=== PATIENT | male | born 1955 | race Caucasian/White ===

== ENCOUNTER 2016-09-27 10:46 | Emergency (ER) | payer MEDICAID ==
[~2016-09-27] VITALS: Ht 177.8 cm; Wt 132.8 kg
[~2016-09-27 10:46] MED LIST: AMLO5TAB2 PO; APIX2.5T PO; APIX5TAB PO; CHOL100015 PO; CHOL4PAC2 PO; DOCU-30 PO; ENOX40SY4 SQ; FOLI-17 PO; FURO-92 PO; GABA600T2 PO; LEVO125T PO; LEVO200T PO; LEVO300T2 PO; LISI-170 PO; LISI1TAB5 PO; OMEP20TA62 PO; ONDA4TAB10 PO; OXYC-229 PO; OXYC5TAB3 PO; POTA25TA4 PO; POTA2IV.2 PO; RIVA15TA PO; SENN1TAB7 PO; WARF10TA PO; [UNRECOGNIZED DRUG - CODE] PO; [UNRECOGNIZED DRUG - CODE] SQ
[2016-09-27] MEDS ORDERED: SODIUM CHLORIDE FLUSH 10ML SYR IVF ONE (11:30)
[2016-09-27 12:00] LABS: HEMOGLOBIN 11.6 g/dL (13.7-18.0)
[2016-09-27] MEDS ORDERED: morphine SULFATE 10 MG/ML, 1ML IVPush ONE (12:00)
[2016-09-27 12:10] LABS: BLOOD UREA NITROGEN 23 mg/dL (7-18)
[2016-09-27 12:15] LABS: ASPARTATE AMINO TRANSFERASE 11 U/L (15-37)
[2016-09-27 12:20] LABS: IS PT STATUS REG ER OR PRE ER? YES
[2016-09-27] MEDS ORDERED: MORPHINE SULFATE 4 MG/ML, 1ML ONE (13:10)
[2016-09-27] MEDS ORDERED: OMNIPAQUE 350 MG/ML, 100ML BOTTLE ONE (14:23)
[2016-09-27 14:26] VITALS: BP 116/90
== END 2016-09-27 15:44 | disposition home or self-care (01) ==
LOC: ED 12:56
DX: G89.29 Other chronic pain (principal); R10.84 Generalized abdominal pain; R55 Syncope and collapse; I82.5Z2 Chronic embolism and thrombosis of unspecified deep veins of left distal lower extremity; Z79.01 Long term (current) use of anticoagulants
CPT/HCPCS: 36415; 71010; 71275; 80053; 83880; 84484; 85025; 85610; 85730; 93005; 93971; 96374; 99285; J2270; Q9967

== ENCOUNTER 2016-11-28 15:53 | Emergency (ER) | payer MEDICAID, OTHER ==
[~2016-11-28] VITALS: Ht 177.8 cm; Wt 131.7 kg
[2016-11-28 17:31] LABS: BLOOD UREA NITROGEN 26 mg/dL (7-18)
[2016-11-28 21:20] VITALS: BP 117/78
== END 2016-11-28 21:21 | disposition home or self-care (01) ==
LOC: ED 21:15
DX: R60.0 Localized edema (principal); I10 Essential (primary) hypertension; E03.9 Hypothyroidism, unspecified; K50.90 Crohn's disease, unspecified, without complications; Z90.49 Acquired absence of other specified parts of digestive tract
CPT/HCPCS: 36415; 80048; 82040; 85025; 85610; 85730; 99285

== ENCOUNTER 2017-09-09 08:38 | Emergency (ER) | payer MEDICAID ==
[~2017-09-09] VITALS: Ht 177.8 cm; Wt 138.7 kg
[~2017-09-09 08:38] MED LIST changes: +DOCU-131 PO; -DOCU-30 PO; -OXYC-229 PO; +OXYC-307 PO; +WARF10TA6 PO; +WARF7.5T6 PO
[2017-09-09] MEDS ORDERED: ACETAMINOPHEN 325 MG TABLET ONE (10:19)
[2017-09-09] MEDS ORDERED: ALBUTEROL/IPRATROPIUM 2.5MG/0.5MG, 3 ML ONE (10:23)
[2017-09-09] MEDS ORDERED: ACETAMINOPHEN 325 MG TABLET PO ONE (10:30)
[2017-09-09] MEDS ORDERED: ALBUTEROL/IPRATROPIUM 2.5MG/0.5MG, 3 ML NPPB ONE (10:30)
[2017-09-09 10:33] LABS: BASOPHILS # (AUTO) 0.04 x10^3/uL (0-0.1); BASOPHILS % (AUTO) 1 % (0-1); EOSINOPHILS # (AUTO) 0.11 x10^3/uL (0-0.4); EOSINOPHILS % (AUTO) 1 % (1-7); LYMPHOCYTES # (AUTO) 1.42 x10^3/uL (1-3.4); LYMPHOCYTES % (AUTO) 17 % (22-44); MD NO; MEAN CORPUSCULAR HEMOGLOBIN 28.3 pg (27.5-34.5); MEAN CORPUSCULAR HGB CONC 32.7 g/dL (33.2-36.2); MEAN CORPUSCULAR VOLUME 86.5 fL (81-97); MEAN PLATELET VOLUME 8.7 fL (7.4-10.4); MONOCYTES % (AUTO) 10 % (2-9); NEUTROPHILS # (AUTO) 6.06 x10^3/uL (1.8-6.8); NEUTROPHILS % (AUTO) 72 % (42-75); PLATELET COUNT 185 x10^3/uL (130-400); RED CELL DISTRIBUTION WIDTH 15.8 % (9.4-14.8)
[2017-09-09 10:36] LABS: ALBUMIN 3.6 g/dL (3.4-5.0); ANION GAP 8 mmol/L (5-15); CALCIUM 8.3 mg/dL (8.5-10.1); CHLORIDE 109 mmol/L (98-107); CREATININE 1.55 mg/dL (0.7-1.3)
[2017-09-09 10:40] LABS: TROPONIN I < 0.015 ng/mL (0.000-0.045)
[2017-09-09 12:01] VITALS: BP 134/75
== END 2017-09-09 12:03 | disposition home or self-care (01) ==
LOC: ED 10:27
DX: J44.9 Chronic obstructive pulmonary disease, unspecified (principal); R07.2 Precordial pain; I83.223 Varicose veins of left lower extremity with both ulcer of ankle and inflammation; L97.321 Non-pressure chronic ulcer of left ankle limited to breakdown of skin; Z90.49 Acquired absence of other specified parts of digestive tract; E03.9 Hypothyroidism, unspecified; I10 Essential (primary) hypertension; I82.5Z2 Chronic embolism and thrombosis of unspecified deep veins of left distal lower extremity; Z79.01 Long term (current) use of anticoagulants; K21.9 Gastro-esophageal reflux disease without esophagitis; Z86.73 Personal history of transient ischemic attack (TIA), and cerebral infarction without residual deficits
CPT/HCPCS: 36415; 71045; 80048; 82040; 84484; 85025; 93005; 94640; 99285; J7620

== ENCOUNTER 2018-06-27 15:21 | Emergency (ER) | payer SELFPAY ==
[~2018-06-27] VITALS: Ht 177.8 cm; Wt 100.0 kg
[~2018-06-27 15:21] MED LIST changes: +AMLO-150 PO; -AMLO5TAB2 PO; +BUDE3CAP2 PO; +DULO30CA2 PO; +ENOX150S4 SQ; +LEVO200T5 PO; +LEVO300T4 PO; -SENN1TAB7 PO; +SENN1TAB8 PO; +WARF10TA43 PO; -WARF10TA6 PO; +WARF5TAB PO; +WARF7.5T46 PO; -WARF7.5T6 PO
[2018-06-27] MEDS ORDERED: ENOXAPARIN 100 MG/ML ONE (16:53)
[2018-06-27 17:00] VITALS: BP 149/79
[2018-06-27] MEDS ORDERED: ENOXAPARIN 100 MG/ML SQ ONE (17:00)
[2018-06-27] MEDS ORDERED: WARFARIN 7.5 MG TABLET PO-COUM ONE (17:00)
== END 2018-06-27 17:26 | disposition home or self-care (01) ==
LOC: ED 15:45
DX: I82.491 Acute embolism and thrombosis of other specified deep vein of right lower extremity (principal); I10 Essential (primary) hypertension; E03.9 Hypothyroidism, unspecified; K21.9 Gastro-esophageal reflux disease without esophagitis; E66.9 Obesity, unspecified; Z68.31 Body mass index [BMI] 31.0-31.9, adult; Z86.73 Personal history of transient ischemic attack (TIA), and cerebral infarction without residual deficits; Z90.49 Acquired absence of other specified parts of digestive tract; Z90.89 Acquired absence of other organs; Z87.19 Personal history of other diseases of the digestive system
CPT/HCPCS: 93971; 96372; 99284; J1650

== ENCOUNTER 2018-08-03 10:45 | Emergency (ER) | payer OTHER ==
[~2018-08-03] VITALS: Ht 177.8 cm; Wt 142.2 kg
[~2018-08-03 10:45] MED LIST changes: -GABA600T2 PO; +GABA600T7 PO
[2018-08-03 10:54] VITALS: BP 147/86
--- NOTE | 2018-08-03 11:13 | NUR ---
Assumed care of patient. C/O rash on left inguinal area and under pannus. +yeast. Will continue to monitor.
[2018-08-03] MEDS ORDERED: NYSTATIN TOPICAL POWDER 15GM TP STA (11:16)
--- NOTE | 2018-08-03 11:49 | NUR ---
Bilat inguinal area and under pannus cleaned with soap and water.
[2018-08-03 12:02] LABS: BASOPHILS # (AUTO) 0.04 x10^3/uL (0-0.1); BASOPHILS % (AUTO) 1 % (0-1); EOSINOPHILS % (AUTO) 3 % (1-7); LYMPHOCYTES # (AUTO) 1.36 x10^3/uL (1-3.4); LYMPHOCYTES % (AUTO) 17 % (22-44); MD NO; MEAN CORPUSCULAR HEMOGLOBIN 28.5 pg (27.5-34.5); MEAN CORPUSCULAR HGB CONC 32.2 g/dL (33.2-36.2); MEAN CORPUSCULAR VOLUME 88.5 fL (81-97); MEAN PLATELET VOLUME 8.6 fL (7.4-10.4); MONOCYTES # (AUTO) 0.78 x10^3/uL (0.2-0.8); MONOCYTES % (AUTO) 10 % (2-9); NEUTROPHILS # (AUTO) 5.48 x10^3/uL (1.8-6.8); NEUTROPHILS % (AUTO) 70 % (42-75); PLATELET COUNT 187 x10^3/uL (130-400); RED BLOOD COUNT 4.35 x10^6/uL (4.38-5.82); RED CELL DISTRIBUTION WIDTH 14.4 % (9.4-14.8)
[2018-08-03 12:09] LABS: ANION GAP 7 mmol/L (5-15); CALCIUM 8.5 mg/dL (8.5-10.1); CHLORIDE 111 mmol/L (98-107)
[2018-08-03 12:10] LABS: CREATININE 1.26 mg/dL (0.7-1.3)
[2018-08-03 12:36] LABS: CULTURE INDICATED? YES; MICROSCOPIC INDICATED
--- NOTE | 2018-08-03 13:04 | NUR ---
Patient/Caregiver given discharge instructions and they have confirmed that they understand the instructions. Patient ambulatory with steady gait.
== END 2018-08-03 13:06 | disposition home or self-care (01) ==
LOC: ED 11:21
DX: L03.314 Cellulitis of groin (principal); K21.9 Gastro-esophageal reflux disease without esophagitis; E03.9 Hypothyroidism, unspecified; I10 Essential (primary) hypertension; E66.9 Obesity, unspecified
CPT/HCPCS: 36415; 80048; 81001; 82040; 85025; 87086; 99283

== ENCOUNTER 2018-08-18 14:29 | Emergency (ER) | payer MEDICAID, OTHER ==
[~2018-08-18] VITALS: Ht 177.8 cm; Wt 142.0 kg
--- NOTE | 2018-08-18 15:09 | NUR ---
Ambulatory to rm [id number] from [facility]
[2018-08-18 15:16] LABS: BASOPHILS # (AUTO) 0.04 x10^3/uL (0-0.1); BASOPHILS % (AUTO) 1 % (0-1); EOSINOPHILS # (AUTO) 0.17 x10^3/uL (0-0.4); EOSINOPHILS % (AUTO) 2 % (1-7); LYMPHOCYTES # (AUTO) 1.55 x10^3/uL (1-3.4); LYMPHOCYTES % (AUTO) 22 % (22-44); MD NO; MEAN CORPUSCULAR HEMOGLOBIN 28.1 pg (27.5-34.5); MEAN CORPUSCULAR HGB CONC 32.1 g/dL (33.2-36.2); MEAN CORPUSCULAR VOLUME 87.6 fL (81-97); MEAN PLATELET VOLUME 8.9 fL (7.4-10.4); MONOCYTES # (AUTO) 0.76 x10^3/uL (0.2-0.8); MONOCYTES % (AUTO) 11 % (2-9); NEUTROPHILS # (AUTO) 4.63 x10^3/uL (1.8-6.8); NEUTROPHILS % (AUTO) 65 % (42-75); PLATELET COUNT 189 x10^3/uL (130-400); RED BLOOD COUNT 4.64 x10^6/uL (4.38-5.82); RED CELL DISTRIBUTION WIDTH 15.4 % (9.4-14.8)
[2018-08-18 15:31] LABS: ALANINE AMINOTRANSFERASE 52 U/L (12-78); ALBUMIN 3.1 g/dL (3.4-5.0); ALKALINE PHOSPHATASE 124 U/L (45-117); ANION GAP 4 mmol/L (5-15); BILIRUBIN,TOTAL 0.2 mg/dL (0.2-1.0); CALCIUM 8.2 mg/dL (8.5-10.1); CHLORIDE 113 mmol/L (98-107); CREATININE 1.39 mg/dL (0.7-1.3); TOTAL PROTEIN 8.3 g/dL (6.4-8.2)
--- NOTE | 2018-08-18 15:42 | NUR ---
ASSUMED CARE OF PT AT THIS TIME.
--- NOTE | 2018-08-18 15:50 | NUR ---
THIS IS A63 YO MALE WHO PRESENTS TO THE ER C/O LLQ/RLQ PAIN X A FEW DAYS WITH DIARRHEA X 2 WEEKS. PT HAS HX OF CHRONS AND STATES THIS FEELS SIMILAR. PT DENIES RECENT ABX USE. PT AO X 4. SKIN PWD. RESP EVEN AND EQAUL. PT REPORTS PAIN IS 10/10. PT ABLE TO SPEAK IN FULL 12-15 WORD SENTENCES W/O DIFFICULTY. CALL LIGHT WITHIN REACH. WILL CONT TO MONITOR PT.
[2018-08-18] MEDS ORDERED: ONDANSETRON 2MG/ML, 2ML ONE (15:54)
[2018-08-18] MEDS ORDERED: MORPHINE SULFATE 4 MG/ML, 1ML ONE ×2 (15:54→16:26)
[2018-08-18] MEDS: MORPHINE SULFATE 4 MG/ML, 1ML IVPush PRN ×2 (15:59→16:52)
[2018-08-18] MEDS ORDERED: SODIUM CHLORIDE FLUSH 10ML SYR IVF ONE ×2 (16:00)
[2018-08-18] MEDS ORDERED: ONDANSETRON 2MG/ML, 2ML IVPush ONE (16:00)
--- NOTE | 2018-08-18 16:00 | NUR ---
PT TO CT [facility]AN [facility] [employer] AT THIS [facility]. PT MEDICATED FOR PAIN/NAUSEA PRIOR TO GOING. PT AO X 4. SKIN PWD. RESP EVEN AND EQAUL. WILL CONT TO MONITOR PT.
[2018-08-18] MEDS ORDERED: OMNIPAQUE 350 MG/ML, 100ML BOTTLE ONE (16:28)
[2018-08-18] MEDS ORDERED: BACITRACIN ZINC OINT 500U/GM, 0.9 GM ONE (17:58)
[2018-08-18 18:00] VITALS: BP 177/104
--- NOTE | 2018-08-18 18:02 | NUR ---
Patient/Caregiver given discharge instructions and they have confirmed that they understand the instructions. Patient ambulatory with steady gait.
== END 2018-08-18 18:03 | disposition home or self-care (01) ==
LOC: ED 15:45
DX: S80.922A Unspecified superficial injury of left lower leg, initial encounter (principal); K50.10 Crohn's disease of large intestine without complications; K21.9 Gastro-esophageal reflux disease without esophagitis; I10 Essential (primary) hypertension; Z86.73 Personal history of transient ischemic attack (TIA), and cerebral infarction without residual deficits; Z86.718 Personal history of other venous thrombosis and embolism
CPT/HCPCS: 36415; 74177; 80053; 83690; 85025; 96374; 96375; 96376; 99284; J2405; Q9967